=== PATIENT | male | born 1965 | race Caucasian/White ===

== ENCOUNTER 2016-08-01 07:12 | Day surgery (SDC) | payer OTHER ==
[2016-07-28 09:10] VITALS: BMI 40.5
[~2016-08-01 07:12] MED LIST: LACTATED RINGERS 1,000 ML IV SCH
[2016-08-01 08:13] VITALS: RESP 16; TEMP 97.8
[2016-08-01] MEDS ORDERED: LIDOCAINE 1% 20 ML VIAL (10MG/ML) FOR IV START INTRADERMA ONE (08:20)
[2016-08-01] MEDS ORDERED: PROPOFOL 10 MG/ML 20 ML VIAL IV ONE (08:59)
--- NOTE | 2016-08-01 09:34 | P.DS ---
Providers Attending physician: Camryn Castillo Primary care physician: Chintan Rubio Plan - Discharge Summary Discharge Medication List Norvasc 10 mg PO QAM 07/28/16 [History] Activity/Diet/Wound Care/Special Instructions: Diverticular diet Discharge Disposition: HOME SELF-CARE
--- NOTE | 2016-08-01 09:34 | P.PCN ---
Date of Procedure: 08/01/16 Preoperative Diagnosis: Screening colonoscopy Postoperative Diagnosis: Same, sigmoid diverticuli, internal hemorrhoids, small hyperplastic rectal changes Procedure(s) Performed: Colonoscopy Anesthesia: MAC Surgeon: Camryn Castillo Estimated Blood Loss (ml): 0 IV fluids (ml): 300 Pathology: none sent Condition: stable Disposition: PACU Indications for Procedure: Patient for screening colonoscopy Operative Findings: Sigmoid diverticuli, internal hemorrhoids, hyperplastic rectal changes Description of Procedure: Patient was taken to the endoscopy suite and following sedation rectal exam was performed. Patient was noted to have adequate sphincter tone no masses. Colonoscope was passed through the anus into the rectum. Was passed through the sigmoid colon up to splenic flexure transverse colon hepatic flexure right colon down to the area of the cecum. Circumferential observation mucosa did not reveal any lesions of concern in the cecum or right colon. No lesions of concern were identified in the transverse colon. In the left colon the patient had some scattered diverticuli which would have the greatest concentration in the sigmoid colon. These were moderate to extensive in nature. No polypoid lesions of concern were identified. The scope was brought down to the rectum where it was retroflexed. No mucosal lesions of concern were identified. Internal hemorrhoids were noted. There appeared to be some extremely small possible hyperplastic changes in the rectum. Impression/plan: 1. Diverticuli 2. Internal hemorrhoids 3. Questionable very small hyperplastic changes in the rectum Plan: 1. Conservative management of diverticuli and hemorrhoids 2. Repeat colonoscopy 5-7 years
[2016-08-01 09:54] VITALS: BP 119/80; PULSE 73
== END 2016-08-01 10:20 | disposition home or self-care (01) ==
LOC: ORWHC2ENDO 07:12
PROVIDERS: ATTEND Surgery
DX: Z12.11 Encounter for screening for malignant neoplasm of colon (principal); Z80.0 Family history of malignant neoplasm of digestive organs; K57.30 Diverticulosis of large intestine without perforation or abscess without bleeding; K64.8 Other hemorrhoids; I10 Essential (primary) hypertension; Z79.899 Other long term (current) drug therapy; Z88.0 Allergy status to penicillin
CPT/HCPCS: J2704; G0105